=== PATIENT | male | born 1985 | race Caucasian/White ===

== ENCOUNTER → 2017-07-10 | Outpatient (CLI) | payer BC ==
--- NOTE | 2017-07-10 13:07 | RAD ---
Left RIBS with chest, 3 views, 07/10/2017: History: Left rib pain No rib fracture or destructive lesion is seen. There is no evidence of underlying pneumothorax, hemothorax or pulmonary infiltrate. The depth of inspiration is suboptimal. There is a mild thoracic scoliosis with scattered marginal spurring. IMPRESSION: No significant left rib abnormality is detected.
== END | disposition home or self-care (01) ==
LOC: DXRAD 11:32
PROVIDERS: ATTEND Physician Assistant
DX: M41.84 Other forms of scoliosis, thoracic region (principal); M48.8X4 Other specified spondylopathies, thoracic region
CPT/HCPCS: 71101

== ENCOUNTER 2017-12-02 19:36 | Inpatient (IN) | payer BC ==
[~2017-12-02] VITALS: Ht 165.1 cm; Wt 155.1 kg
[2017-12-02] MEDS ORDERED: cloNIDine HCL 0.1 MG TABLET PO ONE (20:00)
--- NOTE | 2017-12-02 20:07 | ED.ADGEN ---
Adult General Chief Complaint Chief Complaint chest pain HPI HPI Patient is a 32-year-old male with history of hypertension, diabetes, morbid obesity and remote history of DVT presents with left-sided chest pain for the past 2 months. Current episode started 2 hours ago while at work. Pain is described as left parasternal and and is dull. It is rated as moderate. No provocative or palliative features. Reports occasional shortness of breath and nauseated unrelated to chest pain. Denies chest pain with exertion and activity. Denies increased leg pain or swelling. Patient has not been evaluated for these complaints. Blood pressure is noted be 160/117. Patient states he did take his Diovan this morning. Reports family history of early onset heart disease. Patient's mother had an heart attack below the age 50. Patient denies any other acute symptoms or complaints. [] Review of Systems Review of Systems ROS as per HPI. [] All other systems were reviewed and found to be within normal limits, except as documented in this note. Current Medications Current Medications Current Medications Medications (Trade) Dose Ordered Sig/Aamir Start Time Stop Time Status Last Admin Dose Admin Clonidine HCl (Catapres) 0.2 mg 1X ONCE 12/02/17 20:00 12/02/17 20:01 DC 12/02/17 20:21 0.2 MG Allergies Allergies Allergies Coded Allergies Type Severity Reaction Last Updated Verified No Known Drug Allergies 12/02/17 No Physical Exam Physical Exam Constitutional: Well developed, well nourished, no acute distress, non-toxic appearance. [] HENT: Normocephalic, atraumatic, bilateral external ears normal, oropharynx moist, no oral exudates, nose normal. [] Eyes: PERRLA, EOMI, conjunctiva normal, no discharge. [] Neck: Normal range of motion. [] Cardiovascular:Heart rate regular rhythm, no murmur [] Lungs & Thorax: Bilateral breath sounds clear to auscultation [] Abdomen: Bowel sounds normal, soft, obesity compromising exam. [] Skin: Warm. [] Back: No tenderness. [] Extremities: No tenderness, negative Homans sign. [] Neurologic: Alert and oriented X 3, normal motor function, normal sensory function, no focal deficits noted. [] Psychologic: Affect normal, judgement normal, mood normal. [] Current Patient Data Vital Signs Vital Signs Date Time Temp Pulse Resp B/P (MAP) Pulse Ox O2 Delivery O2 Flow Rate FiO2 12/02/17 20:21 85 156/117 12/02/17 19:36 98.1 16 98 Room Air Lab Results Laboratory Tests Test 12/02/17 20:25 White Blood Count 6.8 x10^3/uL (4.0-11.0) Red Blood Count 4.83 x10^6/uL (4.30-5.70) Hemoglobin 14.8 g/dL (13.0-17.5) Hematocrit 43.1 % (39.0-53.0) Mean Corpuscular Volume 89 fL (79-100) Mean Corpuscular Hemoglobin 31 pg (25-35) Mean Corpuscular Hemoglobin Concent 34 g/dL (31-37) Red Cell Distribution Width 13.9 % (11.5-14.5) Platelet Count 170 x10^3/uL (140-400) Neutrophils (%) (Auto) 63 % (31-73) Lymphocytes (%) (Auto) 27 % (24-48) Monocytes (%) (Auto) 8 % (0-9) Eosinophils (%) (Auto) 1 % (0-3) Basophils (%) (Auto) 1 % (0-3) Neutrophils # (Auto) 4.3 x10^3uL (1.8-7.7) Lymphocytes # (Auto) 1.8 x10^3/uL (1.0-4.8) Monocytes # (Auto) 0.5 x10^3/uL (0.0-1.1) Eosinophils # (Auto) 0.1 x10^3/uL (0.0-0.7) Basophils # (Auto) 0.0 x10^3/uL (0.0-0.2) D-Dimer (Katelin) 0.36 mg/L (0.00-0.50) Sodium Level 141 mmol/L (136-145) Potassium Level 3.6 mmol/L (3.5-5.1) Chloride Level 102 mmol/L (98-107) Carbon Dioxide Level 30 mmol/L (21-32) Anion Gap 9 (6-14) Blood Urea Nitrogen 19 mg/dL (8-26) Creatinine 1.1 mg/dL (0.7-1.3) Estimated GFR (Cockcroft-Gault) 77.1 BUN/Creatinine Ratio 17 (6-20) Glucose Level 84 mg/dL (70-99) Calcium Level 9.4 mg/dL (8.5-10.1) Total Bilirubin 0.3 mg/dL (0.2-1.0) Aspartate Amino Transferase (AST) 21 U/L (15-37) Alanine Aminotransferase (ALT) 44 U/L (16-63) Alkaline Phosphatase 68 U/L (46-116) Troponin I Quantitative < 0.017 ng/mL (0-0.055) Total Protein 8.0 g/dL (6.4-8.2) Albumin 4.0 g/dL (3.4-5.0) Albumin/Globulin Ratio 1.0 (1.0-1.7) EKG EKG [EKG: Sinus rhythm, rate 82, no acute ST-T wave changes, QTC 412. Patient by this physician.] Radiology/Procedures Radiology/Procedures [Chest x-ray: No discrete pulmonary infiltrate.] Course & Med Decision Making Course & Med Decision Making Pertinent Labs and Imaging studies reviewed. (See chart for details) [Blood pressure improved with treatment. Chest pain essentially resolved in the emergency department. EKG, troponin nonacute. Given patient's cardiac risk factors including hypertension, smoking and family history of coronary disease below age 50 he will be admitted for blood pressure management and cardiac evaluation. Poke with Dr. Meza who accepts care of the patient] Final Impression Final Impression [1. Chest pain 2. Accelerated Hypertension] Problems: Dragon Disclaimer Dragon Disclaimer This electronic medical record was generated, in whole or in part, using a voice recognition dictation system. DEJA JORDAN DO Dec 02, 2017 20:06
[2017-12-02 20:49] LABS: BASO % 1 % (0-3); EOS # 0.1 x10^3/uL (0.0-0.7); EOS % 1 % (0-3); HEMATOCRIT 43.1 % (39.0-53.0); HEMOGLOBIN 14.8 g/dL (13.0-17.5); LYMPH # 1.8 x10^3/uL (1.0-4.8); LYMPH % 27 % (24-48); MEAN CORPUSCULAR HEMOGLOBIN 31 pg (25-35); MEAN CORPUSCULAR HGB CONC 34 g/dL (31-37); MEAN CORPUSCULAR VOLUME 89 fL (79-100); MONO # 0.5 x10^3/uL (0.0-1.1); MONO % 8 % (0-9); NEUT # 4.3 x10^3uL (1.8-7.7); NEUT % 63 % (31-73); PLATELET COUNT 170 x10^3/uL (140-400); RED BLOOD COUNT 4.83 x10^6/uL (4.30-5.70); RED CELL DISTRIBUTION WIDTH 13.9 % (11.5-14.5); WHITE BLOOD COUNT 6.8 x10^3/uL (4.0-11.0)
[2017-12-02 21:01] LABS: CALCIUM 9.4 mg/dL (8.5-10.1); CREATININE 1.1 mg/dL (0.7-1.3); GFR 77.1; POTASSIUM 3.6 mmol/L (3.5-5.1); TOTAL BILIRUBIN 0.3 mg/dL (0.2-1.0)
[2017-12-02] MEDS ORDERED: ASPIRIN 325 MG TABLET PO ONE (22:45)
[2017-12-02] MEDS ORDERED: cloNIDine HCL 0.1 MG TABLET PO PRN (22:45)
[2017-12-02] MEDS ORDERED: ONDANSETRON PF 4 MG/2 ML VIAL. IV PRN (22:45)
--- NOTE | 2017-12-02 22:59 | EKG ---
[address] [address] Test Date: 2017-12-02 Test Time: 19:53:47 Pat Name: HOSSEIN ARTHUR Department: Room: Gender: M Piercer Operator: [facility] : 1985 Requested By: DEJA JORDAN Order Number: [id number] Reading MD: Fabrizio Estrada MD Measurements Intervals [place] Rate: 82 P: 40 AR: 160 QRS: 21 QRSD: 90 T: 27 QT: 350 QTc: 412 Interpretive Statements SINUS RHYTHM Electronically Signed On 12-05-2017 14:13:32 CDT by Fabrizio Estrada MD
[2017-12-02] MEDS ORDERED: IOHEXOL 300 MG/ML 75 ML VIAL. IV ONE (23:30)
[2017-12-02 23:45] LABS: BARBITURATES NEG (NEG); BENZODIAZEPINES NEG (NEG); CANNABINOIDS NEG (NEG); COCAINE NEG (NEG); METHADONE NEG (NEG); OPIATES NEG (NEG); PHENCYCLIDINE NEG (NEG)
[2017-12-02] MEDS ORDERED: CONTRAST GIVEN MC PRN (23:45)
[2017-12-02 23:54] LABS: AMPHETAMINE/METHAMPHETAMINE NEG (NEG)
--- NOTE | 2017-12-03 | RAD ---
CT angiography chest with contrast HISTORY: Left sided chest pain, shortness of breath and nausea. TECHNIQUE: Helical CT imaging of the chest with 75 mL Omnipaque 300 intravenous contrast with 3-D MIP reconstructions of the pulmonary arteries to assess for emboli. FINDINGS: Ectasia ascending thoracic aorta diameter 3.8 cm. Mild stranding densities at the anterior mediastinum likely residual thymus gland without f discrete mass evident. No adenopathy. Heart size normal. No pulmonary artery emboli. Bilateral gynecomastia. No pneumothorax, pulmonary opacities or pleural effusions. Bones demonstrate thoracic scoliosis and changes of disc disease. There is a mild chronic appearing compression deformity of the T12 vertebral body anteriorly. IMPRESSION: No acute process. No pulmonary artery embolus. Exposure: One or more of the following individualized dose reduction techniques were utilized for this examination: 1. Automated exposure control 2. Adjustment of the mA and/or kV according to patient size 3. Use of iterative reconstruction technique Electronically signed by: Aleks Lowe MD (12/02/2017 11:57 PM) [facility]
[2017-12-03] MEDS ORDERED: VALS1TAB25 PO (01:06)
[2017-12-03] MEDS ORDERED: FEXO1TAB31 PO (01:06)
[2017-12-03] MEDS ORDERED: IBUP800T19 PO (01:06)
[2017-12-03 01:23] VITALS: BP 126/85
[2017-12-03 04:59] VITALS: BP 124/96
[2017-12-03 05:17] LABS: BASO % 1 % (0-3); EOS # 0.1 x10^3/uL (0.0-0.7); EOS % 2 % (0-3); HEMATOCRIT 40.8 % (39.0-53.0); HEMOGLOBIN 13.7 g/dL (13.0-17.5); LYMPH # 2.4 x10^3/uL (1.0-4.8); LYMPH % 35 % (24-48); MEAN CORPUSCULAR HEMOGLOBIN 31 pg (25-35); MEAN CORPUSCULAR HGB CONC 34 g/dL (31-37); MEAN CORPUSCULAR VOLUME 91 fL (79-100); MONO # 0.7 x10^3/uL (0.0-1.1); MONO % 10 % (0-9); NEUT # 3.7 x10^3uL (1.8-7.7); NEUT % 53 % (31-73); PLATELET COUNT 157 x10^3/uL (140-400); RED BLOOD COUNT 4.51 x10^6/uL (4.30-5.70); RED CELL DISTRIBUTION WIDTH 13.9 % (11.5-14.5)
[2017-12-03 05:29] LABS: ALBUMIN 3.3 g/dL (3.4-5.0); ALBUMIN/GLOBULIN RATIO 0.9 (1.0-1.7); GFR 86.1; POTASSIUM 3.6 mmol/L (3.5-5.1); TOTAL BILIRUBIN 0.4 mg/dL (0.2-1.0); TOTAL PROTEIN 6.9 g/dL (6.4-8.2)
--- NOTE | 2017-12-03 07:26 | RAD ---
Single view of the Chest 12/02/2017 9:53 PM Indication: Chest pain Comparison: Chest radiograph July 10, 2017 Findings: Lordotic projection noted. No evidence of pneumothorax or pleural effusion is seen. Heart size is within normal limits given portable technique. No focal infiltrates are seen. Impression: No radiographic evidence of acute cardiopulmonary process
[2017-12-03] MEDS ORDERED: LOSARTAN 50 MG TABLET. PO SCH (09:00)
[2017-12-03] MEDS ORDERED: hydroCHLOROthiazide 12.5 MG CAPSULE PO SCH (09:00)
[2017-12-03 11:03] VITALS: BP 96/59
--- NOTE | 2017-12-03 14:06 | CARD ---
MR#: [id number] Date of Study: 12/03/2017 Ordering Physician: JOAN REDDY, Referring Physician: JESUS MERCADO Tech: Rahel Sarabia RDCS APPROVED REPORT EXAM: Two-dimensional and M-mode echocardiogram with Doppler and color Doppler. Other Information Quality : Fair Technically limited study due to body habitus. INDICATION Chest Pain RISK FACTORS Obesity 2D DIMENSIONS RVDd3.2 (2.9-3.5cm)Left Atrium(2D)4.1 (1.6-4.0cm) IVSd1.0 (0.7-1.1cm)Aortic Root(2D)2.8 (2.0-3.7cm) LVDd5.3 (3.9-5.9cm)LVOT Diameter2.3 (1.8-2.4cm) PWd1.1 (0.7-1.1cm)LVDs4.0 (2.5-4.0cm) FS (%) 27.0 %SV65.2 ml LVEF(%)55.0 (>50%) Aortic Valve AoV Peak Sarthak.156.0cm/sAoV VTI30.4cm AO Peak GR.9.7mmHgLVOT Peak Sarthak.111.1cm/s LVOT VTI 23.58cmAO Mean GR.5mmHg ALONSO (VMAX)2.77dw8NTE (VTI)3.22cm2 Mitral Valve MV E Zkearetv634.4cm/sMV DECEL ANBQ540yc MV A Hgnwnyuk39.0cm/sE/A Ratio1.3 Tricuspid Valve TR P. Rmqoaoho325ut/sRAP JIAPNBYW9wiAm TR Peak Gr.18gfHzAIJU35agVq Pulmonary Vein S1 Wvrozfpe39.3cm/sD2 Ycdplepc61.9cm/s LEFT VENTRICLE The left ventricle is normal size. There is normal left ventricular wall thickness. The left ventricu lar systolic function is normal and the ejection fraction is within normal range. The Ejection Fracti on is 55-60%. There is normal LV segmental wall motion. The left ventricular diastolic function and f illing is normal for age. RIGHT VENTRICLE The right ventricle is normal size. The right ventricular systolic function is normal. ATRIA The left atrium is mildly dilated. The right atrium size is normal. The interatrial septum is intact with no evidence for an atrial septal defect or patent foramen ovale as noted on 2-D or Doppler imagi ng. AORTIC VALVE The aortic valve is normal in structure and function. Doppler and Color Flow revealed no significant aortic regurgitation. There is no significant aortic valvular stenosis. MITRAL VALVE The mitral valve is normal in structure and function. There is no evidence of mitral valve prolapse. There is no mitral valve stenosis. Doppler and Color-flow revealed trace mitral regurgitation. TRICUSPID VALVE The tricuspid valve is normal in structure and function. Doppler and Color Flow revealed trace tricus pid regurgitation. The PA pressure was estimated at 30 mmHg. There is no tricuspid valve stenosis. PULMONIC VALVE The pulmonic valve is not well visualized. Doppler and Color Flow revealed trace pulmonic valvular re gurgitation. There is no pulmonic valvular stenosis. GREAT VESSELS The aortic root is normal in size. The ascending aorta is not well seen. The IVC is normal in size an d collapses >50% with inspiration. PERICARDIAL EFFUSION There is no evidence of significant pericardial effusion. Critical Notification Critical Value: No <Conclusion> The left ventricular systolic function is normal and the ejection fraction is within normal range. Th e Ejection Fraction is 55-60%. There is normal LV segmental wall motion. Doppler and Color Flow revealed trace tricuspid regurgitation. The PA pressure was estimated at 30 mm Hg. Signed by : Fabrizio Estrada, Electronically Approved : 12/03/2017 14:06:20
--- NOTE | 2017-12-03 14:12 | PDOC2 ---
CONSULT Date of Admission DATE: 12/03/17 TIME: 14:12 Reason for Consult: Chest pain Chief Complaint Chest pain Source: Chart review, Patient Problem List Problems Medical Problems: (1) Accelerated hypertension Status: Acute (2) Chest pain Status: Acute History of Present Illness 32-year-old male presented complaining of intermittent episodes of left-sided chest pain not related to exertion or food intake. He denied any orthopnea/PND, palpitations or syncope. Past Medical History Hypertension Diabetes mellitus type 2 Deep venous thrombosis Morbid obesity Family History Positive for premature coronary artery disease Social History Nonsmoker and nondrinker Current Medications Current Medications Clonidine HCl (Catapres) 0.2 mg 1X ONCE PO Last administered on 12/02/17at 20:21 ; Start 12/02/17 at 20:00; Stop 12/02/17 at 20:01; Status DC Ondansetron HCl (Zofran) 4 mg PRN Q4HRS PRN IV NAUSEA/VOMITING; Start 12/02/17 at 22:45; Stop 12/03/17 at 22:44 Aspirin (Jennifer Aspirin) 325 mg 1X ONCE PO Last administered on 12/02/17at 23:27 ; Start 12/02/17 at 22:45; Stop 12/02/17 at 22:50; Status DC Clonidine HCl (Catapres) 0.2 mg PRN Q6HRS PRN PO ELEVATED BP, SEE COMMENTS Last administered on 12/03/17at 05:03; Start 12/02/17 at 22:45 Iohexol (Omnipaque 300 Mg/ml) 75 ml 1X ONCE IV Last administered on 12/02/17at 23:36; Start 12/02/17 at 23:30; Stop 12/02/17 at 23:31; Status DC Info (Do NOT chart on this entry -- for MONITORING) 1 each PRN DAILY PRN MC SEE COMMENTS; Start 12/02/17 at 23:45; Stop 12/04/17 at 23:44 Losartan Potassium (Cozaar) 50 mg DAILY PO Last administered on 12/03/17at 09:56 ; Start 12/03/17 at 09:00 Hydrochlorothiazide (Microzide) 12.5 mg DAILY PO Last administered on at 09:55; Start 12/03/17 at 09:00 Active Scripts Active Reported Ibuprofen 800 Mg Tablet 800 Mg PO Valsartan-Hctz 80-12.5 Mg Tab (Valsartan/Hydrochlorothiazide) 1 Each Tablet 1 Each PO Zonia-D 24 Hour Tablet (Fexofenadine/Pseudoephedrine) 1 Each Tab.er.24h 1 Tab PO DAILY Allergies: Coded Allergies: No Known Drug Allergies (Unverified , 12/02/17) PSYCHOLOGICAL ROS: No: Hallucinations Eyes: No: Loss of vision HEENT: No: Epistaxis ENDOCRINE: No: Palpitations Respiratory: No: Hemoptysis Cardiovascular: yes: Chest Pain Genitourinary: No: [place] Neurological: No: Seizures Skin: No: Rash General: Alert, Oriented X3 HEENT: Atraumatic, PERRLA Lungs: Clear to auscultation Heart: Regular rate Abdomen: Soft Extremities: No edema Psych/Mental Status: Mood NL VITALS Vital Signs Date Time Temp Pulse Resp B/P (MAP) Pulse Ox O2 Delivery O2 Flow Rate FiO2 12/03/17 11:03 98.3 68 20 96/59 (71) 98 Room Air Labs Laboratory Tests Test 12/02/17 20:25 12/02/17 23:26 12/03/17 04:45 White Blood Count 6.8 x10^3/uL (4.0-11.0) 7.0 x10^3/uL (4.0-11.0) Red Blood Count 4.83 x10^6/uL (4.30-5.70) 4.51 x10^6/uL (4.30-5.70) Hemoglobin 14.8 g/dL (13.0-17.5) 13.7 g/dL (13.0-17.5) Hematocrit 43.1 % (39.0-53.0) 40.8 % (39.0-53.0) Mean Corpuscular Volume 89 fL (79-100) 91 fL (79-100) Mean Corpuscular Hemoglobin 31 pg (25-35) 31 pg (25-35) Mean Corpuscular Hemoglobin Concent 34 g/dL (31-37) 34 g/dL (31-37) Red Cell Distribution Width 13.9 % (11.5-14.5) 13.9 % (11.5-14.5) Platelet Count 170 x10^3/uL (140-400) 157 x10^3/uL (140-400) Neutrophils (%) (Auto) 63 % (31-73) 53 % (31-73) Lymphocytes (%) (Auto) 27 % (24-48) 35 % (24-48) Monocytes (%) (Auto) 8 % (0-9) 10 % (0-9) Eosinophils (%) (Auto) 1 % (0-3) 2 % (0-3) Basophils (%) (Auto) 1 % (0-3) 1 % (0-3) Neutrophils # (Auto) 4.3 x10^3uL (1.8-7.7) 3.7 x10^3uL (1.8-7.7) Lymphocytes # (Auto) 1.8 x10^3/uL (1.0-4.8) 2.4 x10^3/uL (1.0-4.8) Monocytes # (Auto) 0.5 x10^3/uL (0.0-1.1) 0.7 x10^3/uL (0.0-1.1) Eosinophils # (Auto) 0.1 x10^3/uL (0.0-0.7) 0.1 x10^3/uL (0.0-0.7) Basophils # (Auto) 0.0 x10^3/uL (0.0-0.2) 0.0 x10^3/uL (0.0-0.2) D-Dimer (Katelin) 0.36 mg/L (0.00-0.50) Sodium Level 141 mmol/L (136-145) 141 mmol/L (136-145) Potassium Level 3.6 mmol/L (3.5-5.1) 3.6 mmol/L (3.5-5.1) Chloride Level 102 mmol/L (98-107) 104 mmol/L (98-107) Carbon Dioxide Level 30 mmol/L (21-32) 30 mmol/L (21-32) Anion Gap 9 (6-14) 7 (6-14) Blood Urea Nitrogen 19 mg/dL (8-26) 17 mg/dL (8-26) Creatinine 1.1 mg/dL (0.7-1.3) 1.0 mg/dL (0.7-1.3) Estimated GFR (Cockcroft-Gault) 77.1 86.1 BUN/Creatinine Ratio 17 (6-20) 17 (6-20) Glucose Level 84 mg/dL (70-99) 95 mg/dL (70-99) Calcium Level 9.4 mg/dL (8.5-10.1) 9.0 mg/dL (8.5-10.1) Total Bilirubin 0.3 mg/dL (0.2-1.0) 0.4 mg/dL (0.2-1.0) Aspartate Amino Transf (AST/SGOT) 21 U/L (15-37) 18 U/L (15-37) Alanine Aminotransferase (ALT/SGPT) 44 U/L (16-63) 38 U/L (16-63) Alkaline Phosphatase 68 U/L (46-116) 55 U/L (46-116) Troponin I Quantitative < 0.017 ng/mL (0-0.055) < 0.017 ng/mL (0-0.055) Total Protein 8.0 g/dL (6.4-8.2) 6.9 g/dL (6.4-8.2) Albumin 4.0 g/dL (3.4-5.0) 3.3 g/dL (3.4-5.0) Albumin/Globulin Ratio 1.0 (1.0-1.7) 0.9 (1.0-1.7) Urine Opiates Screen Neg (NEG) Urine Methadone Screen Neg (NEG) Urine Barbiturates Neg (NEG) Urine Phencyclidine Screen Neg (NEG) Urine Amphetamine/Methamphetamine Neg (NEG) Urine Benzodiazepines Screen Neg (NEG) Urine Cocaine Screen Neg (NEG) Urine Cannabinoids Screen Neg (NEG) Urine Ethyl Alcohol Neg (NEG) Assessment/Plan 1. Chest pain with atypical features: Myocardial infarction been ruled out. 2- D echo showed normal LV function without any wall motion abnormalities. Plan for Lexiscan nuclear stress test as an outpatient. 2. Accelerated hypertension most probably secondary to noncompliance. Blood pressure much better controlled since admission. 3. Diabetes mellitus: Treat per IM. Thank you for your consultation Problems: JOAN REDDY MD Dec 03, 2017 14:12
[2017-12-03 15:36] VITALS: BP 102/67
[2017-12-03] MEDS ORDERED: IBUPROFEN 800 MG TABLET. PO PRN (16:00)
[2017-12-04] MEDS ORDERED: PSEUDOEPHEDRINE ER 120 MG TABLET.ER. PO SCH (09:00)
[2017-12-04] MEDS ORDERED: CETIRIZINE HCL 10 MG TABLET PO SCH (09:00)
--- NOTE | 2017-12-04 09:20 | SSS ---
ADMIT DATE: 12/02/2017 HISTORY OF PRESENT ILLNESS: The patient is a 32-year-old male patient with a past medical history significant for hypertension, diabetes, and morbid obesity and remote history of DVT, came complaining of left-sided chest pain for the past 2 months, current episode started about 2 hours ago while at work. He describes his pain as left parasternal and is dull, rated as moderate. No provocative or palliative features. He reports occasional shortness of breath and nausea, unrelated to his chest pain. He denied any chest pain with exertion and activity. Denies any increased leg pain or swelling. Has been evaluated for these complaints. His blood pressure was not to be high. He stated he did take his Diovan the same day in the morning. He has a family history of early onset heart disease. The patient's mother had a heart attack below the age of 50. However, he denied any other acute symptoms or complaints. PAST MEDICAL HISTORY: Significant for hypertension, diabetes, morbid obesity and remote history of DVT. PAST SURGICAL HISTORY: Unremarkable. ALLERGIES: He has no known drug allergies. MEDICATIONS: He is on fexofenadine and pseudoephedrine for Zonia-D one tablet daily. He is on valsartan/hydrochlorothiazide 80/12.5 mg daily and ibuprofen 800 mg as needed. FAMILY HISTORY: Significant for the fact that his mother has had heart attack in her late 40s. SOCIAL HISTORY: He is apparently single. Does not smoke, drink alcohol or use any recreational drugs. REVIEW OF SYSTEMS: As per history of present illness. The patient was admitted with chest pain and accelerated hypertension. LABORATORY WORK: First set of cardiac enzymes show troponin to be less than 0.017. His EKG showed that he was in sinus rhythm with a heart rate of [address]-T changes and corrected QT interval of 428.12 milliseconds. Chest x-ray was unremarkable with no radiographic evidence of acute cardiopulmonary process given that he has history of DVT before. He has a CT angio of the chest, which basically showed that ectasia of the ascending thoracic aorta, diameter 38 cm, mild stranding densities at the anterior mediastinum, likely residual thymus gland without discrete mass evident. No adenopathy. Heart size is normal. No pulmonary artery emboli,. Has bilateral gynecomastia. No pneumothorax, pulmonary opacities or pleural effusion. Bones demonstrates thoracic scoliosis and changes of disk disease. There is a mild chronic appearing compression deformity of the T12 vertebral body anteriorly. ASSESSMENT AND PLAN: The patient was admitted. Has had 1 more set of cardiac enzyme and he was seen in consultation by the Cardiology team and has had an echocardiogram which showed that the left ventricular systolic function is normal, ejection fraction is within normal range. Ejection fraction 55-60%. There is normal left ventricular segmental wall motion. Doppler and color flow revealed trace tricuspid regurgitation. The pulmonary artery pressure was estimated at 30 mmHg. The patient was discharged with the chest pain that is noncardiac and has normal left ventricular systolic function, ejection fraction. Other medical problems include hypertension, morbid obesity, and remote history of DVT. JESUS MERCADO MD DR: RAQUEL/mario JOB#: [id number] / [id number]
== END 2017-12-03 16:30 | disposition home or self-care (01) | DRG 313 ==
LOC: ER 19:36 → 1 SOUTH 22:47 → ER 23:49
PROVIDERS: ADMIT Internal Medicine; ATTEND Internal Medicine
DX: R07.89 Other chest pain (principal); E66.01 Morbid (severe) obesity due to excess calories; Z68.43 Body mass index [BMI] 50.0-59.9, adult; I07.1 Rheumatic tricuspid insufficiency; M41.84 Other forms of scoliosis, thoracic region; I10 Essential (primary) hypertension; E11.9 Type 2 diabetes mellitus without complications; I77.810 Thoracic aortic ectasia; N62 Hypertrophy of breast; Z86.718 Personal history of other venous thrombosis and embolism; Z82.49 Family history of ischemic heart disease and other diseases of the circulatory system
CPT/HCPCS: 36415; 71045; 71275; 80053; 80307; 84484; 85025; 85379; 93005; 93306; Q9967; 99285-25; G0479

== ENCOUNTER 2018-05-13 00:07 | Emergency (ER) | payer BC ==
[~2018-05-13 00:07] MED LIST: FEXO1TAB31 PO; IBUP800T19 PO; VALS1TAB25 PO
[2018-05-13] MEDS: NITROGLYCERIN SUBLINGUAL 0.4 MG BOTTLE OF 25. SL ONE (01:11)
[2018-05-13] MEDS: ASPIRIN 325 MG TABLET PO ONE (01:11)
[2018-05-13 01:15] LABS: BASO % 1 % (0-3); EOS # 0.1 x10^3/uL (0.0-0.7); EOS % 2 % (0-3); HEMOGLOBIN 13.8 g/dL (13.0-17.5); LYMPH # 1.6 x10^3/uL (1.0-4.8); LYMPH % 27 % (24-48); MEAN CORPUSCULAR HEMOGLOBIN 30 pg (25-35); MEAN CORPUSCULAR HGB CONC 34 g/dL (31-37); MEAN CORPUSCULAR VOLUME 88 fL (79-100); MONO # 0.5 x10^3/uL (0.0-1.1); MONO % 8 % (0-9); NEUT # 3.7 x10^3uL (1.8-7.7); NEUT % 63 % (31-73); PLATELET COUNT 167 x10^3/uL (140-400); RED BLOOD COUNT 4.65 x10^6/uL (4.30-5.70); RED CELL DISTRIBUTION WIDTH 13.8 % (11.5-14.5)
[2018-05-13 01:20] LABS: CALCIUM 8.6 mg/dL (8.5-10.1); CREATININE 1.2 mg/dL (0.7-1.3); GFR 69.3; POTASSIUM 3.3 mmol/L (3.5-5.1)
--- NOTE | 2018-05-13 01:53 | ED.ADGEN ---
Past History Past Medical History: Dementia, Hypertension Past Surgical History: No Surgical History Alcohol Use: Occasionally Drug Use: None Adult General Chief Complaint Chief Complaint Multiple medical complaints HPI HPI Patient is a 33-year-old male presents multiple medical complaints. Patient reports sharp epigastric pain which is brief lasting less than 5 minutes which resolved after eating 2 granola bars. This was followed by pain radiating to the patient's chest neck and numbness around his jaw. Patient also reports left- sided neck pain radiating to his shoulder which reproduces palpation and movement. Reports neck pain upon waking yesterday morning. No nausea shortness of breath, sweats. Denies increased leg pain or swelling. Cardiac risk factors include hypertension and prediabetes. No history of DVT or PE. Patient is a non- smoker. Denies no history of early CAD.[] Review of Systems Review of Systems Review symptoms as per history of present illness. All other systems were reviewed and found to be within normal limits, except as documented in this note. Current Medications Current Medications Current Medications Medications (Trade) Dose Ordered Sig/[facility] Start Time Stop Time Status Last Admin Dose Admin Aspirin (Jennifer Aspirin) 325 mg 1X ONCE 05/13/18 01:00 05/13/18 01:01 DC 05/13/18 01:11 325 MG Info (Do NOT chart on this entry -- for MONITORING) 1 each PRN DAILY PRN 05/13/18 02:00 05/15/18 01:59 Iohexol (Omnipaque 300 Mg/ml) 50 ml 1X ONCE 05/13/18 02:00 05/13/18 02:01 IA 05/13/18 01:59 50 ML Nitroglycerin (Nitrostat) 0.4 mg 1X ONCE 05/13/18 01:00 05/13/18 01:01 IA Allergies Allergies Allergies Coded Allergies Type Severity Reaction Last Updated Verified No Known Drug Allergies 12/02/17 No Physical Exam Physical Exam Constitutional: Well developed, well nourished, no acute distress, non-toxic appearance. [] HENT: Normocephalic, atraumatic, bilateral external ears normal, oropharynx moist, nose normal. [] Eyes: PERRLA, EOMI, conjunctiva normal. [] Neck: Normal range of motion, no tenderness. [] Cardiovascular:Heart rate regular rhythm.[] Lungs & Thorax: Bilateral breath sounds clear to auscultation [] Abdomen: Bowel sounds normal, soft, no tenderness. [] Skin: Warm, dry, no erythema. [] Back: No tenderness. [] Extremities: No tenderness, no edema. [] Neurologic: Alert and oriented X 3, normal motor function, normal sensory function, no focal deficits noted. [] Psychologic: Affect normal, judgement normal, mood normal. [] Current Patient Data Vital Signs Vital Signs Date Time Temp Pulse Resp B/P (MAP) Pulse Ox O2 Delivery O2 Flow Rate FiO2 05/13/18 00:07 98.1 85 20 98 Room Air Lab Results Laboratory Tests Test 05/13/18 00:45 05/13/18 03:00 White Blood Count 6.0 x10^3/uL (4.0-11.0) Red Blood Count 4.65 x10^6/uL (4.30-5.70) Hemoglobin 13.8 g/dL (13.0-17.5) Hematocrit 41.0 % (39.0-53.0) Mean Corpuscular Volume 88 fL (79-100) Mean Corpuscular Hemoglobin 30 pg (25-35) Mean Corpuscular Hemoglobin Concent 34 g/dL (31-37) Red Cell Distribution Width 13.8 % (11.5-14.5) Platelet Count 167 x10^3/uL (140-400) Neutrophils (%) (Auto) 63 % (31-73) Lymphocytes (%) (Auto) 27 % (24-48) Monocytes (%) (Auto) 8 % (0-9) Eosinophils (%) (Auto) 2 % (0-3) Basophils (%) (Auto) 1 % (0-3) Neutrophils # (Auto) 3.7 x10^3uL (1.8-7.7) Lymphocytes # (Auto) 1.6 x10^3/uL (1.0-4.8) Monocytes # (Auto) 0.5 x10^3/uL (0.0-1.1) Eosinophils # (Auto) 0.1 x10^3/uL (0.0-0.7) Basophils # (Auto) 0.0 x10^3/uL (0.0-0.2) D-Dimer (Katelin) 0.58 mg/L (0.00-0.50) H Sodium Level 139 mmol/L (136-145) Potassium Level 3.3 mmol/L (3.5-5.1) L Chloride Level 103 mmol/L (98-107) Carbon Dioxide Level 32 mmol/L (21-32) Anion Gap 4 (6-14) L Blood Urea Nitrogen 17 mg/dL (8-26) Creatinine 1.2 mg/dL (0.7-1.3) Estimated GFR (Cockcroft-Gault) 69.3 Glucose Level 91 mg/dL (70-99) Calcium Level 8.6 mg/dL (8.5-10.1) Troponin I Quantitative < 0.017 ng/mL (0-0.055) < 0.017 ng/mL (0-0.055) EKG EKG [EKG: NSR, rate 78, QTC 439.] Radiology/Procedures Radiology/Procedures [CXR: NAD CTA chest: No evidence of dissection per radiology report] Course & Med Decision Making Course & Med Decision Making Pertinent Labs and Imaging studies reviewed. (See chart for details) [Atypical Chest pain, symptoms resolved in ED. NTG Not given. Repeat troponin negative, heart score 1, d-dimer positive, CTA negative for dissection, PE doubtful. Commend antacids, Tylenol for muscle skeletal pain and PCP follow-up. Return precautions reviewed. Final Impression Final Impression [#1 atypical chest pain] Dragmor Disclaimer Dragon Disclaimer This electronic medical record was generated, in whole or in part, using a voice recognition dictation system. DEJA JORDAN DO May 13, 2018 01:53
[2018-05-13] MEDS: IOHEXOL 300 MG/ML 50 ML VIAL. IV ONE (01:59)
[2018-05-13] MEDS: IOHEXOL 300 MG/ML 75 ML VIAL. IV ONE (01:59)
[2018-05-13] MEDS ORDERED: CONTRAST GIVEN MC PRN (02:00)
--- NOTE | 2018-05-13 02:48 | RAD ---
Examination: CT angiography chest abdomen pelvis HISTORY: History of chest pain or shortness of breath COMPARISON: CT chest from 12/02/2017 TECHNIQUE: Axial CT angiographic images of the chest abdomen pelvis were performed with IV contrast coronal and Sagittal 3-D MIP reformats are performed Exposure: One or more of the following individualized dose reduction techniques were utilized for this examination: 1. Automated exposure control 2. Adjustment of the mA and/or kV according to patient size 3. Use of iterative reconstruction technique FINDINGS: The visualized thyroid gland grossly appears unremarkable. Patient body habitus limits evaluation. The ascending aorta measures 3.6 cm in transverse dimension. No evidence of thoracic aortic dissection identified. The evaluation of the abdominal aorta is limited as there is not enough contrast within the aorta in the abdomen and pelvis region. However the caliber of the aorta grossly appears unremarkable. The origin of the great vessels from the arch of the aorta grossly appears unremarkable. No evidence of pericardial effusion. The lungs are clear. No evidence of free air identified in the abdomen. Mildly enlarged appearing liver and spleen likely hepatosplenomegaly. Visualized pancreas grossly appears unremarkable. The bilateral kidneys enhance symmetrically. The small bowel is nondilated. The appendix is normal. Feces and gas noted in the colon. Multiple sigmoid colon diverticulosis. Urinary bladder is mildly distended. Mild degenerative changes thoracic lumbar spine. IMPRESSION: 1. No evidence of thoracic aortic dissection. The evaluation of the abdominal aorta is limited as there is not enough contrast within the aorta in the abdomen and pelvis region. However the caliber of the abdominal aorta grossly appears unremarkable. 2. Mild ectatic ascending aorta similar to prior exam. 3. Hepatosplenomegaly. Electronically signed by: Higinio Soto MD (05/13/2018 2:44 AM) [facility]
[2018-05-13 03:50] VITALS: BP 147/95
--- NOTE | 2018-05-13 04:28 | RAD ---
Chest, PA and Lateral: Technique: PA and lateral views of the chest were obtained. History: Chest pain. Comparison: None. Findings: The heart and pulmonary vasculature appear within normal limits. The lungs are clear. The pleural margins are clear. Impression: No acute chest process is seen. Electronically signed by: Higinio Soto MD (05/13/2018 4:24 AM) [facility]
== END 2018-05-13 03:50 | disposition home or self-care (01) ==
LOC: ER 00:07
DX: R07.89 Other chest pain (principal); R10.13 Epigastric pain; M54.2 Cervicalgia; I10 Essential (primary) hypertension; F03.90 Unspecified dementia, unspecified severity, without behavioral disturbance, psychotic disturbance, mood disturbance, and anxiety
CPT/HCPCS: 36415; 71046; 71275; 74174; 80048; 84484; 85025; 85379; 99285; Q9967

== ENCOUNTER → 2018-06-18 | Outpatient (CLI) | payer BC ==
--- NOTE | 2018-06-18 12:12 | RAD ---
Left lower extremity venous Doppler ultrasound History: Left Leg pain and swelling Comparison: None. Procedure: Color flow Doppler, Doppler spectral analysis, and 2D images are obtained with and without compression in the area of the common femoral vein, superficial femoral vein - femoral vein junction, main femoral vein (superficial femoral vein) and popliteal vein. Veins of the proximal calf are also imaged. Findings: There is normal color flow, augmentation, and compressibility of all visualized vein segments. No evidence of deep venous thrombus is present. IMPRESSION: No evidence of left lower extremity deep venous thrombosis. Electronically signed by: Dewey Melendez MD (06/18/2018 12:09 PM) [id number]
--- NOTE | 2018-06-18 14:41 | RAD ---
Upright and supine views of the abdomen without comparison for abdominal pain with diarrhea. FINDINGS: There is no free air. There is scattered abdominal bowel gas in a nonobstructive pattern. Stool seen in the vicinity of the rectum. No pathologic ossifications are identified. No significant osseous abnormalities are seen. IMPRESSION: 1. Nonobstructive nonspecific bowel gas pattern. Electronically signed by: Rodriguez Cui MD (06/18/2018 2:38 PM) [facility]
== END | disposition home or self-care (01) ==
LOC: RAD 11:24
PROVIDERS: ATTEND Physician Assistant
DX: M79.605 Pain in left leg (principal); R10.84 Generalized abdominal pain
CPT/HCPCS: 74021; 93971

== ENCOUNTER → 2018-10-08 | Outpatient (CLI) | payer BC ==
--- NOTE | 2018-10-08 16:29 | RAD ---
EXAM: Cervical spine, 5 views. HISTORY: Pain. COMPARISON: None. FINDINGS: 5 views of the cervical spine are obtained. There is partial congenital fusion of the C4-C5 vertebral bodies and posterior elements. There is no significant listhesis. The nonfused disc spaces are preserved. There is left foraminal narrowing at C4-C5. IMPRESSION: 1. Congenital fusion of C4-C5. There is suspected left foraminal stenosis at this level. 2. No acute osseous finding. Electronically signed by: Kristin Arellano MD (10/08/2018 4:26 PM) [facility]
== END | disposition home or self-care (01) ==
LOC: RAD 11:31
PROVIDERS: ATTEND Physician Assistant
DX: M43.22 Fusion of spine, cervical region (principal)
CPT/HCPCS: 72050

== ENCOUNTER → 2018-12-17 | Outpatient (CLI) | payer OTHER ==
--- NOTE | 2018-12-17 17:46 | RAD ---
2 view study of the right knee Clinical indications: Anterior right knee pain for 3 days. FINDINGS: No acute fracture or dislocation or lytic process is seen. Old exostosis and accessory ossification center of the anterior tibial tubercle is seen. This may be secondary to old Asif-Schlatter's disease. There is mild degenerative spurring of the patella without joint space narrowing. There is mild degenerative spurring without joint space narrowing of the medial and lateral lateral tibial femoral joint compartments. IMPRESSION: Mild tricompartmental primary degenerative osteoarthritis of the right knee. Electronically signed by: Phu Malone MD (12/17/2018 5:43 PM) [facility]
== END | disposition home or self-care (01) ==
LOC: PMG 13:39
PROVIDERS: ATTEND Registered Nurse
DX: M17.11 Unilateral primary osteoarthritis, right knee (principal); M76.891 Other specified enthesopathies of right lower limb, excluding foot
CPT/HCPCS: 73560

== ENCOUNTER → 2019-08-06 | Outpatient (CLI) | payer BC ==
--- NOTE | 2019-08-07 15:28 | RAD ---
3 view study of the left thumb Clinical indications: Left thumb pain since yesterday FINDINGS: No acute fracture or dislocation or lytic process is seen. There is mild degenerative spurring of the first metacarpal phalangeal joint. No radiopaque foreign body is evident. IMPRESSION: No acute fracture. Electronically signed by: Phu Malone MD (08/07/2019 3:25 PM) [facility]
== END | disposition home or self-care (01) ==
LOC: PMG 12:02
PROVIDERS: ATTEND Physician Assistant
DX: M77.8 Other enthesopathies, not elsewhere classified (principal); M79.645 Pain in left finger(s)
CPT/HCPCS: 73140

== ENCOUNTER 2019-10-27 11:47 | Emergency (ER) | payer BC ==
[~2019-10-27] VITALS: Ht 165.1 cm; Wt 162.7 kg
[2019-10-27] MEDS ORDERED: IV NORMAL SALINE 1,000ML 1,000 ML IV SCH (12:27)
[2019-10-27 12:58] VITALS: BP 131/83
[2019-10-27 12:59] LABS: BASO % 1 % (0-3); EOS # 0.1 x10^3/uL (0.0-0.7); EOS % 2 % (0-3); HEMATOCRIT 41.7 % (39.0-53.0); LYMPH # 1.4 x10^3/uL (1.0-4.8); LYMPH % 24 % (24-48); MEAN CORPUSCULAR HEMOGLOBIN 30 pg (25-35); MEAN CORPUSCULAR HGB CONC 34 g/dL (31-37); MEAN CORPUSCULAR VOLUME 90 fL (79-100); MONO # 0.5 x10^3/uL (0.0-1.1); MONO % 8 % (0-9); NEUT % 66 % (31-73); PLATELET COUNT 177 x10^3/uL (140-400); RED BLOOD COUNT 4.63 x10^6/uL (4.30-5.70); RED CELL DISTRIBUTION WIDTH 14.2 % (11.5-14.5)
--- NOTE | 2019-10-27 13:02 | PHYS DOC ---
Past History Past Medical History: Hypertension Past Medical History Morbid obesity, cluster headaches Past Surgical History: No Surgical History Alcohol Use: Occasionally Drug Use: None Adult General Chief Complaint Chief Complaint: DIZZY/LIGHT HEADED HPI HPI Patient is a 34 year old male who presents with complaint of dizziness and lightheadedness. Patient states that his symptoms started at approximately 1100 today. Started having dizziness, headache, lightheadedness, nausea, and "seeing spots." Patient has he took 800 mg of ibuprofen and tried to lay down, but noted that he was starting to feel tingling along the left upper extremity. Denies any weakness, difficulty with speech or swallowing, or vision loss. Notes history of cluster headaches. He states these usually take place on the right side of his head. His current headache is along the left side of his head. No fever. Patient states he is not feeling well at this time and thus came to the emergency department for further evaluation. Denies chest pain, shortness of breath, but does note cough. Review of Systems Review of Systems Constitutional: Fatigue, denies fever or chills[] Eyes: Denies change in visual acuity, redness, or eye pain [] HENT: Denies nasal congestion or sore throat [] Respiratory: Cough[] Cardiovascular: Denies chest pain or edema[] GI: Nausea, denies abdominal pain, vomiting, bloody stools or diarrhea [] : Denies dysuria or hematuria [] Musculoskeletal: Denies back pain or joint pain [] Integument: Denies rash or skin lesions [] Neurologic: Dizziness, lightheadedness, numbness in left upper extremity, headache, denies weakness[] Endocrine: Denies polyuria or polydipsia [] All other systems were reviewed and found to be within normal limits, except as documented in this note. Current Medications Current Medications Current Medications Medications (Trade) Dose Ordered Sig/Aamir Start Time Stop Time Status Last Admin Dose Admin Sodium Chloride 1,000 ml @ 1,000 mls/hr Q1H 10/27/19 12:27 10/27/19 13:26 Allergies Allergies Allergies Coded Allergies Type Severity Reaction Last Updated Verified No Known Drug Allergies 12/02/17 No Physical Exam Physical Exam Constitutional: Alert, afebrile, morbidly obese, no acute distress, vital signs stable. [] HENT: Normocephalic, atraumatic, bilateral external ears normal, oropharynx moist, no oral exudates, nose normal. [] Eyes: PERRLA, EOMI, conjunctiva normal, no discharge. [] Neck: Normal range of motion, no tenderness, supple, no stridor. [] Cardiovascular:Heart rate regular rhythm, no murmur [] Lungs & Thorax: Bilateral breath sounds clear to auscultation [] Abdomen: Bowel sounds normal, soft, no tenderness, no masses, no pulsatile masses. [] Skin: Warm, dry, no erythema, no rash. [] Back: No tenderness, no CVA tenderness. [] Extremities: No tenderness, no cyanosis, no clubbing, ROM intact, no edema. [] Neurologic: Alert and oriented X 3, normal motor function, normal sensory funct ion, no focal deficits noted. [] Current Patient Data Vital Signs Vital Signs Date Time Temp Pulse Resp B/P (MAP) Pulse Ox O2 Delivery O2 Flow Rate FiO2 10/27/19 11:47 98.2 88 18 147/95 (112) 98 Room Air Lab Results Laboratory Tests Test 10/27/19 12:44 White Blood Count 6.0 x10^3/uL Red Blood Count 4.63 x10^6/uL Hemoglobin 14.0 g/dL Hematocrit 41.7 % Mean Corpuscular Volume 90 fL Mean Corpuscular Hemoglobin 30 pg Mean Corpuscular Hemoglobin Concent 34 g/dL Red Cell Distribution Width 14.2 % Platelet Count 177 x10^3/uL Neutrophils (%) (Auto) 66 % Lymphocytes (%) (Auto) 24 % Monocytes (%) (Auto) 8 % Eosinophils (%) (Auto) 2 % Basophils (%) (Auto) 1 % Neutrophils # (Auto) 4.0 x10^3uL Lymphocytes # (Auto) 1.4 x10^3/uL Monocytes # (Auto) 0.5 x10^3/uL Eosinophils # (Auto) 0.1 x10^3/uL Basophils # (Auto) 0.0 x10^3/uL Sodium Level 142 mmol/L Potassium Level 4.0 mmol/L Chloride Level 104 mmol/L Carbon Dioxide Level 30 mmol/L Anion Gap 8 Blood Urea Nitrogen 16 mg/dL Creatinine 1.0 mg/dL Estimated GFR (Cockcroft-Gault) 85.0 BUN/Creatinine Ratio 16 Glucose Level 96 mg/dL Calcium Level 8.9 mg/dL Magnesium Level 1.8 mg/dL Total Bilirubin 0.4 mg/dL Aspartate Amino Transf (AST/SGOT) 16 U/L Alanine Aminotransferase (ALT/SGPT) 32 U/L Alkaline Phosphatase 73 U/L Troponin I Quantitative < 0.017 ng/mL Total Protein 7.3 g/dL Albumin 3.4 g/dL Albumin/Globulin Ratio 0.9 Current Medications Medications (Trade) Dose Ordered Sig/Aamir Route PRN Reason Start Time Stop Time Status Last Admin Dose Admin Sodium Chloride 1,000 ml @ 1,000 mls/hr Q1H IV 10/27/19 12:27 10/27/19 13:26 DC 10/27/19 12:27 EKG EKG Interpreted by me: Heart rate 85, sinus rhythm, normal intervals, normal axis, no acute ST/T-wave abnormalities present[] Radiology/Procedures Radiology/Procedures [address] [id number] IMAGING REPORT Signed PATIENT: HOSSEIN ARTHUR ACCOUNT: [id number] : 1985 LOCATION: ER AGE: 34 SEX: M EXAM STATUS: REG ER ORD. PHYSICIAN: HILARY NAVA MD REASON: dizziness PROCEDURE: CT HEAD WO CONTRAST CT HEAD WO CONTRAST History: Dizziness Comparison: None. Technique: Noncontrast CT imaging was performed of the head. Exposure: One or more of the following individualized dose reduction techniques were utilized for this examination: 1. Automated exposure control 2. Adjustment of the mA and/or kV according to patient size 3. Use of iterative reconstruction technique. Findings: No acute extra-axial or parenchymal hemorrhage is identified. There is no significant intra-axial mass effect, midline shift, or extra-axial fluid collection. The avalos-white differentiation of the major vascular territories is preserved. Ventricular size is within normal limits. There is mild prominence of bifrontal subarachnoid spaces likely on developmental basis. There is near complete opacification of the visualized sphenoid sinus likely with air-fluid levels also severe bilateral ethmoid air cell opacification and air-fluid level of the visualized frontal sinus on the right. Left mastoid air cells are aerated, right mastoid air cells not significantly pneumatized. No acute calvarial abnormality is identified. Impression: 1. No acute intracranial abnormality is identified. 2. There is near complete opacification of visualized sphenoid sinus with likely air-fluid levels, severe ethmoid air cell opacification, and also right frontal sinus sinus air-fluid level as may be seen with acute sinusitis. Electronically signed by: Yeimy Hogan MD (10/27/2019 1:16 PM) [id number] DICTATED AND SIGNED BY: YEIMY HOGAN MD DATE: 10/27/19 1316 CC: HILARY NAVA MD; RIGOBERTO DEL CID ~ [] Course & Med Decision Making Course & Med Decision Making Pertinent Labs and Imaging studies reviewed. (See chart for details) Patient was given IV fluids in the emergency department. Blood work unremarkable. CT imaging shows no acute intracranial abnormality but does reveal extensive sphenoidal and ethmoid all sinus disease area this is believed to likely be the cause of the patient's headache and lightheadedness. Patient displays no focal neurologic deficits on exam at this time. Patient will be started on Augmentin and prednisone for treatment of acute sinusitis. Patient has an appointment tomorrow with his primary care provider. Advised to go to this appointment as scheduled and recommended return to the emergency department for any worsening symptoms. Patient was understanding and in agreement with treatment plan.[] Dragon Disclaimer Dragon Disclaimer This electronic medical record was generated, in whole or in part, using a voice recognition dictation system. Departure Departure: Impression: Primary Impression: Acute sinusitis Disposition: 01 HOME, SELF-CARE Condition: IMPROVED Referrals: RIGOBERTO DEL CID (PCP) Patient Instructions: Sinusitis Additional Instructions: Follow-up with Rigoberto Del Cid tomorrow as scheduled. Return to the emergency department for any worsening symptoms. Scripts Prednisone (PREDNISONE) 10 Mg Tablet 50 MG PO DAILY for 5 Days, #25 TAB Prov: HILARY NAVA MD 10/27/19 Amoxicillin/Potassium Clav (AUGMENTIN 875-125 TABLET) 1 Each Tablet 1 TAB PO BID for 7 Days, #14 TAB 0 Refills Prov: HILARY NAVA MD 10/27/19 Problem Qualifiers Primary Impression: Acute sinusitis Sinusitis location: sphenoidal Recurrence: not specified as recurrent Qualified Codes: J01.30 - Acute sphenoidal sinusitis, unspecified HILARY NAVA MD Oct 27, 2019 13:02
[2019-10-27 13:06] LABS: CALCIUM 8.9 mg/dL (8.5-10.1)
--- NOTE | 2019-10-27 13:08 | EKG ---
[address] [address] Test Date: 2019-10-27 Test Time: 12:59:12 Pat Name: HOSSEIN ARTHUR Department: Room: Gender: M Asbestos Handler: : 1985 Requested By: HILARY NAVA Order Number: [id number] Reading MD: Measurements Intervals Ulysses Rate: 85 P: 35 ND: 162 QRS: 4 QRSD: 86 T: 28 QT: 354 QTc: 421 Interpretive Statements SINUS RHYTHM NO SPECIFIC ECG ABNORMALITIES RI6.01 No previous ECG available for comparison
[2019-10-27 13:13] LABS: ALBUMIN 3.4 g/dL (3.4-5.0); ALBUMIN/GLOBULIN RATIO 0.9 (1.0-1.7); MAGNESIUM 1.8 mg/dL (1.8-2.4); TOTAL BILIRUBIN 0.4 mg/dL (0.2-1.0); TOTAL PROTEIN 7.3 g/dL (6.4-8.2)
--- NOTE | 2019-10-27 13:19 | RAD ---
CT HEAD WO CONTRAST History: Dizziness Comparison: None. Technique: Noncontrast CT imaging was performed of the head. Exposure: One or more of the following individualized dose reduction techniques were utilized for this examination: 1. Automated exposure control 2. Adjustment of the mA and/or kV according to patient size 3. Use of iterative reconstruction technique. Findings: No acute extra-axial or parenchymal hemorrhage is identified. There is no significant intra-axial mass effect, midline shift, or extra-axial fluid collection. The avalos-white differentiation of the major vascular territories is preserved. Ventricular size is within normal limits. There is mild prominence of bifrontal subarachnoid spaces likely on developmental basis. There is near complete opacification of the visualized sphenoid sinus likely with air-fluid levels also severe bilateral ethmoid air cell opacification and air-fluid level of the visualized frontal sinus on the right. Left mastoid air cells are aerated, right mastoid air cells not significantly pneumatized. No acute calvarial abnormality is identified. Impression: 1. No acute intracranial abnormality is identified. 2. There is near complete opacification of visualized sphenoid sinus with likely air-fluid levels, severe ethmoid air cell opacification, and also right frontal sinus sinus air-fluid level as may be seen with acute sinusitis. Electronically signed by: Bay Booker MD (10/27/2019 1:16 PM) [id number]
--- NOTE | 2019-10-27 13:34 | RAD ---
PORTABLE CHEST 1V History: Dizziness, cough. Comparison: 05/13/2018. FINDINGS: The cardiomediastinal silhouette is not enlarged. No evidence of pneumothorax, pleural effusion or focal infiltrate. Bones appear intact. IMPRESSION: No evidence of consolidating infiltrate. Electronically signed by: Teo Zaragoza MD (10/27/2019 1:31 PM) [id number]
[2019-10-27] MEDS ORDERED: PRED-220 PO (14:20)
[2019-10-27] MEDS ORDERED: AMOX1TAB61 PO (14:20)
== END 2019-10-27 14:57 | disposition home or self-care (01) ==
LOC: ER 11:47
DX: J01.30 Acute sphenoidal sinusitis, unspecified (principal); R42 Dizziness and giddiness; I10 Essential (primary) hypertension; E66.01 Morbid (severe) obesity due to excess calories; Z68.43 Body mass index [BMI] 50.0-59.9, adult
CPT/HCPCS: 36415; 70450; 71045; 80053; 83735; 84484; 85025; 93005; 96360; 99285-25; J7030

== ENCOUNTER → 2020-08-29 | Outpatient (CLI) | payer BC ==
[~2020-08-29] MED LIST changes: +AMOX1TAB61 PO; +PRED-220 PO
--- NOTE | 2020-08-29 12:25 | RAD ---
EXAM: Right hand, 3 views. HISTORY: Pain. COMPARISON: None. FINDINGS: 3 views of the right hand are obtained. There is no acute fracture, dislocation or subluxat ion. There is slight radial deviation of the distal aspect of the third middle phalanx which is likel y developmental or the sequela of remote injury. No foreign body is seen. IMPRESSION: No acute osseous finding. Electronically signed by: Kristin Arellano MD (08/29/2020 12:22 PM) [id number]
== END ==
LOC: DXRAD 11:49
PROVIDERS: ATTEND Physician Assistant Medical
DX: M79.641 Pain in right hand (principal)
CPT/HCPCS: 73130

== ENCOUNTER → 2021-03-02 | Outpatient (CLI) | payer BC ==
--- NOTE | 2021-03-02 16:29 | RAD ---
EXAMINATION: XR CHEST 2V CLINICAL HISTORY: Productive cough EXAM DATE/TIME: 03/02/2021 12:21 PM COMPARISON: 10/27/2019 FINDINGS: Lines, Tubes, and Devices: None. Cardiomediastinal Silhouette: Within normal limits. Lungs and Pleura: Minimal patchy left basilar opacities. Pleural effusion. Pulmonary vasculature unre markable. Bones and Soft Tissues: Degenerative changes of the thoracic spine. IMPRESSION: Minimal patchy left basilar airspace disease, possibly atelectasis. Electronically signed by: Carlos Stroud DO (03/02/2021 4:27 PM) AL
== END ==
LOC: RAD 12:15
PROVIDERS: ATTEND Physician Assistant
DX: R05 Cough (principal)
CPT/HCPCS: 71046

== ENCOUNTER → 2021-09-19 | Outpatient (CLI) | payer BC ==
--- NOTE | 2021-09-19 16:05 | RAD ---
XR RT WRIST 2 VIEWS DATE: 09/19/2021 3:00 PM INDICATION: PAIN COMPARISON: None. FINDINGS: Bones: There is no evidence of acute fracture or dislocation. Joints: The joint spaces are normal. Miscellaneous: None. IMPRESSION: No evidence of acute fracture. Electronically signed by: Bay Garrison MD (09/19/2021 4:02 PM) [id number]
== END ==
LOC: RAD 14:45
PROVIDERS: ATTEND Physician Assistant
DX: M25.531 Pain in right wrist (principal)
CPT/HCPCS: 73100

== ENCOUNTER 2021-09-30 15:46 | Emergency (ER) | payer BC ==
[~2021-09-30] VITALS: Ht 165.1 cm; Wt 170.0 kg
--- NOTE | 2021-09-30 16:59 | RAD ---
3 views of left knee dated 09/30/2021. Comparison made to 12/17/2018. INDICATION: Pain after injury. FINDINGS: 3 views of left knee show normal bony alignment. No displaced fracture. Mild tricompartmental hypertr ophic change. No apparent joint effusion or loose body. Mild soft tissue swelling. IMPRESSION: 1. No acute radiographic abnormality. Electronically signed by: Teo Venegas MD (09/30/2021 4:56 PM) [id number]
--- NOTE | 2021-09-30 17:22 | PHYS DOC ---
Past History Past Medical History: Hypertension (TEO NICHOLS APRN) Past Surgical History: No Surgical History (TEO NICHOLS APRN) Alcohol Use: None Drug Use: None (TEO NICHOLS APRN) Adult General Chief Complaint Chief Complaint: KNEE INJURY HPI HPI Patient is a 36-year-old male presents to the emergency department complaining of left knee pain after feeling a pop while he was walking down steps this morning at work. Patient reports he continued to work throughout the day and his pain became worse, decided to come to the emergency department after he clocked out of work for evaluation of his left knee pain. Patient denies taking medications for his pain prior to coming to the ER today. Denies other injury, denies fall, denies blunt trauma to his left knee. Patient reports he felt a pop just below his kneecap. Patient reports now it seems to his entire knee hurts. She reports a 7 out of 10 pain. Denies other physical complaints or physical concerns. (TEO NICHOLS APRN) Review of Systems Review of Systems 14 body systems of review of systems have been reviewed. See HPI for pertinent positives and negative responses, otherwise all other systems are negative, nonpertinent or noncontributory. Constitutional: Negative except as outlined in HPI above. Skin: Negative except as outlined in HPI above. Eyes: Negative except as outlined in HPI above. HENT: Negative except as outlined in HPI above. Respiratory: Negative except as outlined in HPI above. Cardiovascular: Negative except as outlined in HPI above. GI: Negative except as outlined in HPI above. : Negative except as outlined in HPI above. Musculoskeletal: Negative except as outlined in HPI above. Integument: Negative except as outlined in HPI above. Neurologic: Negative except as outlined in HPI above. Endocrine: Negative except as outlined in HPI above. Lymphatic: Negative except as outlined in HPI above. Psychiatric: Negative except as outlined in HPI above. (TEO NICHOLS APRN) Allergies Allergies Allergies Coded Allergies Type Severity Reaction Last Updated Verified No Known Drug Allergies 12/02/17 No (TEO NICHOLS APRN) Physical Exam Physical Exam Constitutional: Well developed, well nourished, no acute distress, non-toxic appearance. 36-year-old morbidly obese male in no apparent distress. HENT: Normocephalic, atraumatic. Eyes: Conjunctiva normal, no discharge. Neck: Normal range of motion, no stridor. Cardiovascular: No cyanosis appreciated, distal cap refill less than 2 seconds. Lungs & Thorax: Patient is in no respiratory distress, no audible adventitious lung sounds appreciated. Abdomen: Nontender, no abnormalities noted. Skin: Warm, dry, no erythema, no rash. Back: No tenderness, no deformities. Extremities: No tenderness, no cyanosis, no clubbing, ROM intact, no edema. Pain to palpation around inferior, superior patella structures, medial lateral knee structures and popliteal knee structures. No swelling is appreciated. Distal cap refill less than 2 seconds and equal bilaterally lower extremities, 2+ dorsalis pedis/posterior tibial pulses laterally. Limited range of motion related to pain. No crepitus appreciated, normal knee stability tests to include valgus, varus, anterior drawer, Sy's test. Neurologic: Alert and oriented X 3, normal motor function, normal sensory function, no focal deficits noted. Psychologic: Affect normal, judgement normal, mood normal. (TEO NICHOLS APRN) Current Patient Data Vital Signs Vital Signs Date Time Temp Pulse Resp B/P (MAP) Pulse Ox O2 Delivery O2 Flow Rate FiO2 09/30/21 15:56 97.8 86 18 149/87 (107) 96 Room Air (TEO NICHOLS APRN) EKG EKG [] (TEO NICHOLS APRN) Radiology/Procedures Radiology/Procedures REASON: INJURY PROCEDURE: KNEE LEFT 3V 3 views of left knee dated 09/30/2021. Comparison made to 12/17/2018. INDICATION: Pain after injury. FINDINGS: 3 views of left knee show normal bony alignment. No displaced fracture. Mild tricompartmental hypertrophic change. No apparent joint effusion or loose body. Mild soft tissue swelling. IMPRESSION: 1. No acute radiographic abnormality. Electronically signed by: Teo Venegas MD (09/30/2021 4:56 PM) [id number] (TEO NICHOLS APRN) Heart Score C/O Chest Pain: No Risk Factors: Risk Factors: DM, Current or recent (<one month) smoker, HTN, HLP, family history of CAD, obesity. Risk Scores: Risk Factors: DM, Current or recent (<one month) smoker, HTN, HLP, family history of CAD, obesity. (TEO NICHOLS APRN) Course & Med Decision Making Course & Med Decision Making Pertinent Labs and Imaging studies reviewed. (See chart for details) 36-year-old male, vital signs reviewed, presents emergency department concerning left knee pain after feeling a pop while walking down steps at work this morning. Physical examination concerning for knee sprain, will order x-ray to rule out effusion/bony abnormalities. Will give p.o. pain medications. Ice pack application. X-ray nonconcerning for bony abnormality, no effusion appreciated. Discussed findings with patient, patient continues to complain of left knee pain, discussed RICE therapy, Nikolay wrap application, knee immobilizer, crutches and nonweightbearing, recommended strict follow-up with primary care soon, patient reports he has an appointment in 3 days this coming Saturday, patient is asking for work excuse for light duty. Discussed with patient to continue taking NSAIDs orally for pain, will provide work excuse, patient gave verbal understanding of and is amenable to ED discharge planning. Discussed with the patient all findings and diagnostic testing as well as the need to follow-up with their primary care provider for further evaluation and treatment or return to the ED if any new or worsening symptoms. Strict return precautions were also discussed at length, the patient voiced understanding and agreement with the discharge planning. The patient was nontoxic in appearance, in no apparent distress, and hemodynamically stable at the time of disposition. (TEO NICHOLS APRN) Dragon Disclaimer Dragon Disclaimer This electronic medical record was generated, in whole or in part, using a voice recognition dictation system. (TEO NICHOLS APRN) Attending Co-Sign The patient was seen and interviewed as well as examined at the bedside. The chart was reviewed. The case was discussed. Agree with the plan of care. (DEJA IBRAHIM DO) Departure Departure: Impression: Primary Impression: Left knee sprain Disposition: HOME / SELF CARE / HOMELESS Condition: GOOD Referrals: JAY DEL CID (PCP) Patient Instructions: Crutch Use, Knee Sprain, Knee Wraps (Elastic Bandage) and RICE Additional Instructions: You were seen in the emergency department today after feeling a pop in your left knee this morning while you are at work. An x-ray was performed did not show any concerning findings of broken bones or fluid within your knee joint. An Nikolay wrap, knee immobilizer, and crutches were provided today in the emergency department for your left knee pain. As we discussed RICE therapy, this is an acronym for rest, ice, compression, elevation. Please use ice packs 30 minutes on and 30 minutes off to your sore knee area while awake for the next 48 to 72 hours. Please use crutches and no weightbearing of your left leg during your healing process. Please keep your appointment with your primary care provider this coming Saturday for reevaluation of this knee pain. You may use Tylenol or ibuprofen for ongoing knee discomfort. Thank you for visiting our Emergency Department. It was a pleasure taking care of you today in the emergency department and we appreciate you trusting us with your care. If any additional problems come up don't hesitate to return to visit us. Please follow up with your primary care provider so they can plan additional care if needed and know about the problem that you had. If symptoms worsen come back to the Emergency Department. Any concerning symptoms that start such as chest pain, shortness of air, weakness or numbness on one side of the body, running high fevers or any other concerning symptoms return to the ER. EMERGENCY DEPARTMENT GENERAL DISCHARGE INSTRUCTIONS Thank you for coming to [facility] (ED) today and trusting us with you care. We trust that you had a positivie experience in our Emergency Department. If you wish to speak to the department management, you may call the director at [phone]. YOUR FOLLOW UP INSTRUCTIONS ARE FOLLOWS: 1. Do you have a private Doctor? If you do not have a private doctor, please ask for a resource list of physicians or clinics that may be able to assist you with follow up care. 2. The Emergency Physician has interpreted your x-rays. The X-Ray specialist will also review them. If there is a change in the findings, you will be notified in 48 hours when at all possible. 3. A lab test or culture has been done, your results will be reviewed and you will be notified if you need a change in treatment. ADDITIONAL INSTRUCTIONS AND INFORMATION: 1. Your care today has been supervised by a physician who is specially trained in emergency care. Many problems require more than one evaluation for a complete diagnosis and treatment. We recommend that you schedule your follow up appointment as recommended to ensure complete treatment of you illness or injury. If you are unable to obtain follow up care and continue to have a problem, or if your condition worsens, we recommend that you return to the ED. 2. We are not able to safely determine your condition over the phone nor are we able to give sound medical advice over the phone. For these safety reasons, if you call for medical advice we will ask you to come to the ED for further evaluation. 3. If you have any questions regarding these discharge instructions please call the ED at [phone]. SAFETY INFORMATION: In the interest of safety, wellness, and injury prevention; we encourage you to wear your sealbelt, if you smoke; quite smoking, and we encourage family to use a protective helmet for bicycling and other sporting events that present an increased risk for head injury. IF YOUR SYMPTOMS WORSEN OR NEW SYMPTOMS DEVELOP, OR YOU HAVE CONCERNS ABOUT YOUR CONDITION; OR IF YOUR CONDITION WORSENS WHILE YOU ARE WAITING FOR YOUR FOLLOW UP APPOINTMENT; EITHER CONTACT YOUR PRIMARY CARE DOCTOR, THE PHYSICIAN WHOSE NAME AND NUMBER YOU WERE GIVEN, OR RETURN TO THE ED IMMEDIATELY. Scripts Ibuprofen (IBUPROFEN) 600 Mg Tablet 600 MG PO PRN Q6-8HRS PRN for PAIN, #30 TAB 0 Refills Prov: TEO NICHOLS APRN 09/30/21 Problem Qualifiers Primary Impression: Left knee sprain Encounter type: initial encounter Involved ligament of knee: unspecified ligament Qualified Codes: S83.92XA - Sprain of unspecified site of left knee, initial encounter TEO NICHOLS APRN Sep 30, 2021 17:22 DEJA IBRAHIM DO Oct 01, 2021 06:10
[2021-09-30] MEDS ORDERED: IBUP600T16 PO (17:28)
[2021-09-30] MEDS ORDERED: IBUPROFEN 600 MG TABLET. PO ONE (18:00)
== END 2021-09-30 17:51 | disposition home or self-care (01) ==
LOC: ER 15:46
DX: S83.92XA Sprain of unspecified site of left knee, initial encounter (principal); I10 Essential (primary) hypertension; E66.01 Morbid (severe) obesity due to excess calories; Z68.44 Body mass index [BMI] 60.0-69.9, adult; X50.9XXA Other and unspecified overexertion or strenuous movements or postures, initial encounter; Y93.01 Activity, walking, marching and hiking; Y92.89 Other specified places as the place of occurrence of the external cause; Y99.8 Other external cause status
CPT/HCPCS: 73562; 99283